=== PATIENT | female | born 1945 | race African-American/Black ===

== ENCOUNTER 2018-10-27 06:24 | Day surgery (SDC) | payer BC ==
[2018-10-26 08:17] VITALS: BMI 27.6
[~2018-10-27 06:24] MED LIST: BACITRACIN 50,000 UNITS VIAL TP ONE
[2018-10-27] MEDS ORDERED: LIDOCAINE HCL 1%, 10 MG/ML (20ML VIAL) ONE ×2 (07:12→08:28)
[2018-10-27] MEDS ORDERED: BENZOIN TINCTURE SWABSTICK TP ONE (07:12)
[2018-10-27] MEDS ORDERED: DEXAMETHASONE SOD PHOSPHATE 4 MG/1 ML VIAL ONE (07:12)
[2018-10-27] MEDS ORDERED: SUCCINYLCHOLINE CHLORIDE 200 MG/10 ML SYRINGE ONE (07:20)
[2018-10-27] MEDS ORDERED: MIDAZOLAM HCL 2 MG/2 ML SINGLE DOSE VIAL ONE (07:20)
[2018-10-27] MEDS ORDERED: PROPOFOL 20 ML ONE ×2 (07:20)
[2018-10-27] MEDS ORDERED: DEXMEDETOMIDINE HCL 200 MCG/2 ML IVPB ONE (07:41)
[2018-10-27] MEDS ORDERED: LIDOCAINE HCL/PF 2% SDV 5ML VIAL ONE (08:11)
[2018-10-27] MEDS ORDERED: ceFAZolin SODIUM 1 GM VIAL ONE (08:16)
[2018-10-27] MEDS ORDERED: ceFAZolin SODIUM 1 GM VIAL IVPB ONE (08:17)
[2018-10-27] MEDS ORDERED: BUPIVACAINE HCL/PF 0.5% (5 MG/ML) 30 ML VIAL IJ ONE ×2 (08:17→08:26)
[2018-10-27] MEDS ORDERED: LIDOCAINE HCL 1%, 10 MG/ML (20ML VIAL) INF ONE (08:17)
[2018-10-27] MEDS ORDERED: LIDOCAINE HCL 1%, 10 MG/ML (20ML VIAL) NR ONE (08:26)
[2018-10-27] MEDS ORDERED: KETOROLAC TROMETHAMINE 30 MG/1 ML VIAL ONE (09:32)
[2018-10-27] MEDS ORDERED: BACITRACIN 50,000 UNITS VIAL TP ONE (09:35)
[2018-10-27] MEDS ORDERED: BUPIVACAINE HCL/PF 0.5% (5MG/ML) 10 ML VIAL IJ ONE (09:40)
[2018-10-27] MEDS ORDERED: DEXAMETHASONE SOD PHOSPHATE 4 MG/1 ML VIAL NR ONE (09:40)
[2018-10-27 16:54] VITALS: BP 128/78; PULSE 80; TEMP 98.4
--- NOTE | 2018-10-30 12:21 | OP ---
DATE OF OPERATION: 10/27/2018 SURGEON: Estelita Coreas DPM LEAD DATABASE ADMINISTRATOR: Dr. Valenzuela PREOPERATIVE DIAGNOSIS: Left painful bunion and 2nd digit hammer toe. POSTOPERATIVE DIAGNOSIS: Left painful bunion and 2nd digit hammer toe. OPERATION: Left bunionectomy Donnell osteotomy, 2nd digit arthroplasty, layered closure, postoperative injection. ANESTHESIA: Local MAC. ESTIMATED BLOOD LOSS: 5 mL. HEMOSTASIS: Achieved with an ankle tourniquet at 250 mmHg. DESCRIPTION OF PROCEDURE: The patient was brought to the operating room and placed supine on the operating room table. After adequate IV sedation was administered, a local infiltrative block with 1:1 Marcaine 0.5%, lidocaine 1% was injected in and around the operation site of the left 1st metatarsophalangeal joint region and the left 2nd digit. The foot was then prepped and draped in the usual aseptic fashion. Attention was then directed to a dorsal medial incision over the left 1st MPJ. This incision was carried down to the level of bone meticulously with all vital structures identified and retracted. The 1st metatarsophalangeal joint after the incision had been carried down to bone was then freed and liberated using a McGlamry elevator allowing for significant increase in range of motion. Area was then copiously irrigated with normal saline. Attention was then directed to a very small incision over the 2nd digit interphalangeal joint approximately a centimeter in length. This was carried down to the level of bone. The extensor tendon was then incised and carefully retracted. Using sagittal saw, the head of the proximal phalanx was then removed thus completing the arthroplasty. The area was then copiously lavaged. Attention was then directed back to the dorsal medial incision of the bunionectomy. The medial eminence was removed utilizing the sagittal saw, and the area was smoothed using feathering and a bur to provide for a smooth, contoured metatarsal head. The foot was then redirected allowing for the osteotomy to take place. A Chevron V osteotomy was then performed from medial to lateral on the 1st metatarsal head through and through cortex bicortical. Utilizing a Silsbee, the osteotomy was then completed thus translating the distal portion of the osteotomy on the metatarsal head slightly laterally approximately 0.3 cm. The osteotomy site was then temporarily fixated with a 0.45 K-wire, and utilizing a hand drill, a small commercial helicopter pilot hole was made slightly lateral to the K-wire fixation. Inside this, a 2.7 x 22-mm cortical screw was then utilized to secure the osteotomy site. The K-wire was then removed. Utilizing the sagittal saw, the step off piece of the osteotomy was then removed, and once again, the area was burred and feathered providing for a soft, smooth contour. The area was then once again copiously lavaged with normal saline. The hammer toe arthroplasty region was lavaged with normal saline as well, and closure could begin. Starting with the hammer toe arthroplasty, 3-0 Vicryl was utilized to reapproximate the extensor tendon, 4-0 nylon was then utilized simple stitch fashion to close the arthroplasty site. Attention was then directed to the bunion site where a layered closure was performed using 2-0, 3-0 Vicryl for the soft tissues and 5-0 Monocryl in running dermal subcuticular stitches. The area was then painted with tincture of benzoin to aid in securing the several Steri-Strips that were placed over the incision site. A postoperative injection of 8 mL 0.5% Marcaine and 2 mL of 4 mg was then inserted in and around the osteotomy site for pain relief and inflammation relief. Betadine Adaptic was applied to the incision sites. Dry sterile dressing was applied over this. The patient tolerated the above anesthesia and the surgical procedure well and left the operating room to recovery area with vital signs stable and vascular status intact to remaining digits of the left foot. DARRELL Arnett/[id number]
--- NOTE | 2018-10-31 11:34 | PATH ---
Surgical Pathology Report Patient Name: MATTIE DAVILA [facility]. Rec. #: [id number] /Age/Gender: 1945 (Age: 73) / F Account: [id number] Location: [facility] SURGICAL Taken: 10/27/2018 Received: 10/27/2018 Reported: 10/31/2018 Physicians: Estelita Coreas DPM Specimen(s) Received A: BONE LEFT 2ND TOE B: BONE LEFT 1ST TOE Clinical History Bunion left foot Hammertoe second digit left Final Diagnosis A. BONE, LEFT 2ND TOE, EXCISION: PORTION OF BONE WITH FATTY MARROW SHOWING FOCAL DEGENERATIVE CHANGE. B. BONE, LEFT 1ST TOE, EXCISION: PORTION OF BONE WITH FATTY MARROW SHOWING FOCAL DEGENERATIVE CHANGE. Electronically Signed Xena Lynn M.D. Gross Description A. Received in formalin labeled "bone, left second toe" is an irregular fragment of white-leroy, bone measuring 1.2 x 1 x 0.5 cm. The entire specimen is submitted after decalcification in one cassette. B. Received in formalin labeled "bone, left 1st toe" is an irregular fragment of white-leroy bone measuring 1.3 x 1 x 0.3 cm. The entire specimen is submitted after decalcification in one cassette. MLSZ/10/28/2018 gavino/10/28/2018
== END 2018-10-27 14:00 | disposition home or self-care (01) ==
LOC: JASU-SURG 06:24
PROVIDERS: ATTEND Podiatrist Foot Surgery
PROC: 0SRQ0JZ Replacement of Left Toe Phalangeal Joint with Synthetic Substitute, Open Approach (ICD-10-PCS; principal; 2018-10-27 07:30)
PROC: 0QSP04Z Reposition Left Metatarsal with Internal Fixation Device, Open Approach (ICD-10-PCS; 2018-10-27 07:30)
DX: M20.12 Hallux valgus (acquired), left foot (principal); M21.612 Bunion of left foot; M20.42 Other hammer toe(s) (acquired), left foot; I10 Essential (primary) hypertension; E11.9 Type 2 diabetes mellitus without complications
CPT/HCPCS: 73630-TC-LT; 82962; 88304-TC; 88311-TC; 94760